=== PATIENT | female | born 1985 | race Caucasian/White ===

== ENCOUNTER 2020-12-02 01:04 | Emergency (ER) | payer MEDICAID ==
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
[2020-12-02 06:09] VITALS: BP 107/84; PULSE 94; O2SAT 97
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
== END 2020-12-02 06:50 | disposition home or self-care (01) ==
LOC: ED 01:04
DX: S02.32XA Fracture of orbital floor, left side, initial encounter for closed fracture (principal); S02.2XXA Fracture of nasal bones, initial encounter for closed fracture; Y09 Assault by unspecified means; Y93.9 Activity, unspecified; Y92.9 Unspecified place or not applicable; S05.12XA Contusion of eyeball and orbital tissues, left eye, initial encounter; S90.32XA Contusion of left foot, initial encounter; H46.10 Retrobulbar neuritis, unspecified eye; H05.239 Hemorrhage of unspecified orbit; S02.31XA Fracture of orbital floor, right side, initial encounter for closed fracture
CPT/HCPCS: 70450; 70486; 72125; 99283

== ENCOUNTER 2020-12-02 07:07 | Emergency (ER) | payer MEDICAID ==
[2020-12-02 07:25] VITALS: O2SAT 100
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
[2020-12-02] MEDS ORDERED: TORAdol 30 mg Injection IM ONE (08:06)
[2020-12-02] MEDS ORDERED: TORAdol 30 mg Injection ONE (08:09)
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
[2020-12-02 09:44] VITALS: BP 103/70; PULSE 89
== END 2020-12-02 10:05 | disposition home or self-care (01) ==
LOC: ED 07:07
DX: S02.32XA Fracture of orbital floor, left side, initial encounter for closed fracture (principal); S06.2X9A Diffuse traumatic brain injury with loss of consciousness of unspecified duration, initial encounter; Y09 Assault by unspecified means; Y93.9 Activity, unspecified; Y92.9 Unspecified place or not applicable; S20.219A Contusion of unspecified front wall of thorax, initial encounter
CPT/HCPCS: 71250; 74176; 96372; 99283; J1885